=== PATIENT | female | born 1995 | race Caucasian/White ===

== ENCOUNTER 2018-05-03 03:57 | Emergency (ER) | payer OTHER ==
[~2018-05-03] VITALS: Ht 170.2 cm; Wt 74.8 kg
[2018-05-03] MEDS ORDERED: UNICOMPLEX M TA1 TA1 PO (04:05)
[2018-05-03 04:15] LABS: URINE BILIRUBIN NEGATIVE (Negative); URINE BLOOD 3+ (Negative); URINE CLARITY SL CLOUDY; URINE COLOR YELLOW; URINE GLUCOSE-RANDOM NEGATIVE (Negative); URINE KETONES NEGATIVE (Negative); URINE NITRITE-REFLEX NEGATIVE (Negative); URINE PROTEIN 1+ (Negative); URINE SPECIFIC GRAVITY 1.015 (1.005-1.030); URINE UROBILINOGEN 0.2 E.U./dl (0.2-1.0)
[2018-05-03 04:17] LABS: URINE LEUKOCYTES-REFLEX 3+ (Negative)
[2018-05-03 04:38] LABS: CASTS None Seen /LPF (None Seen); CRYSTALS None Seen /LPF (None Seen); MUCUS 0-3 Light strn/LPF (None Seen); SQUAMOUS 0-3 Few /LPF (0-3); URINE WBC-REFLEX >25 Many /HPF (0-5)
[2018-05-03 04:54] LABS: ABSOLUTE EOSINOPHILS 0.2 thou/uL (0.0-0.7); ABSOLUTE LYMPHOCYTES 2.6 thou/uL (0.8-5.3); ABSOLUTE MONOCYTES 1.2 thou/uL (0.0-1.2); BASOPHILS 0.3 %; EOSINOPHILS 1.9 %; HEMATOCRIT 44.4 % (37.0-47.0); HEMOGLOBIN 15.1 gm/dL (12.0-15.0); LYMPHOCYTES 21.8 %; MCH 29.6 pg (26.0-34.0); MCHC 33.9 g/dL (28.0-37.0); MCV 87.1 fL (80.0-100.0); MONOCYTES 9.8 %; MPV 8.5 fl. (7.2-11.1); NUCLEATED RBCS 0 /100WBC; PLATELET COUNT* 330 thou/uL (150-400); POLYS 66.2 %; RDW-CV 13.2 % (10.5-14.5); WBC 12.2 thou/uL (4.0-11.0)
[2018-05-03 04:59] LABS: CALCIUM 8.9 mg/dL (8.5-10.1); CREATININE 0.7 mg/dL (0.6-1.3); POTASSIUM 3.3 mmol/L (3.5-5.1)
[2018-05-03 05:03] LABS: ALBUMIN 4.2 g/dL (3.4-5.0); TOTAL BILIRUBIN 0.6 mg/dL (<0.1-1.0); TOTAL PROTEIN 7.6 g/dL (6.4-8.2)
[2018-05-03] MEDS ORDERED: TORADOL 10 MG T10 MG PO (06:05)
[2018-05-03] MEDS ORDERED: BACTRIM DS TAB1 EACH PO (06:05)
[2018-05-03 06:13] VITALS: BP 128/68
== END 2018-05-03 06:15 | disposition home or self-care (01) ==
LOC: M.ERS 03:57
PROVIDERS: Emergency Medicine
DX: N39.0 Urinary tract infection, site not specified (principal)